=== PATIENT | male | born 1955 | race African-American/Black ===

== ENCOUNTER 2019-05-29 13:14 | Inpatient (IN) | payer OTHER ==
[2019-05-29 16:05] VITALS: BMI 29.9
--- NOTE | 2019-05-29 18:26 | HP ---
COWS - Scale Resting Pulse: 0= ND 80 or Below Sweatin= Chills/Flushing Restless Observation: 0= Sits Still Pupil Size: 0= Normal to Room Light Bone or Joint Aches: 2= Severe Diffuse Aches Runny Nose/ Eye Tearin= Runny Nose/Eyes GI Upset > 30mins: 2= Nausea/Diarrhea Tremor Observation: 2= Slight Tremor Visible Yawning Observation: 1= 1-2x During Session Anxiety or Irritability: 1=Feels Anxious/Irritable Goose Flesh Skin: 3=Piloerection COWS Score: 14 CIWA Score - Admission Criteria OASAS Guidelines: Admission for Medically Managed Detox: Requires at least one of the followin. CIWA greater than 12 2. Seizures within the past 24 hours 3. Delirium tremens within the past 24 hours 4. Hallucinations within the past 24 hours 5. Acute intervention needed for co occurring medical disorder 6. Acute intervention needed for co occurring psychiatric disorder 7. Severe withdrawal that cannot be handled at a lower level of care (continued vomiting, continued diarrhea, abnormal vital signs) requiring intravenous medication and/or fluids 8. Admission ROS [facility] Chief Complaint: I came here to be cleaned Allergies/Adverse Reactions: Allergies Allergy/AdvReac Type Severity Reaction Status Date / Time No Known Allergies Allergy Verified 05/29/19 16:06 History of Present Illness: Patient is a 63 year old man with heroin dependence who presents for detox. His last detox was at [facility] 4 years ago. Patient uses wheelchair due to knee and hip pain. Exam Limitations: No Limitations - Ebola screening Have you traveled outside of the country in the last 21 days: No (N) Have you had contact with anyone from an Ebola affected area: No Have you been sick,other than usual withdrawal symptoms: No Do you have a fever: No - Review of Systems Constitutional: Chills, Loss of Appetite, Changes in sleep EENT: reports: Recent change in vision, Nose Congestion Respiratory: reports: SOB with Exertion Cardiac: reports: Lightheadedness, Palpitations (sometimes) GI: reports: Nausea, Poor Appetite, Poor Fluid Intake, Abdominal cramping : reports: No Symptoms Reported Musculoskeletal: reports: Back Pain, Joint Pain, Muscle Pain, Muscle Weakness Integumentary: reports: Sweating Neuro: reports: Headache, Tremors Endocrine: reports: No Symptoms Reported Hematology: reports: No Symptoms Reported Psychiatric: reports: Depressed Other Systems: Reviewed and Negative Patient History - Patient Medical History Hx Anemia: No Hx Asthma: No Hx Chronic Obstructive Pulmonary Disease (COPD): No Hx Cancer: No Hx Cardiac Disorders: No Hx Congestive Heart Failure: No Hx Hypertension: Yes Hx Hypercholesterolemia: Yes Hx Pacemaker: No HX Cerebrovascular Accident: No Hx Seizures: No Hx Dementia: No Hx Diabetes: No Hx Gastrointestinal Disorders: No Hx Liver Disease: No Hx Genitourinary Disorders: No Hx Sexually Transmitted Disorders: No Hx Renal Disease (ESRD): No Hx Thyroid Disease: No Hx Human Immunodeficiency Virus (HIV): No Hx Hepatitis C: No Hx Depression: Yes Hx Suicide Attempt: No Hx Bipolar Disorder: No Hx Schizophrenia: No - Patient Surgical History Past Surgical History: Yes Hx Neurologic Surgery: No Hx Cataract Extraction: No Hx Cardiac Surgery: No Hx Lung Surgery: No Hx Breast Surgery: No Hx Breast Biopsy: No Hx Abdominal Surgery: No Hx Appendectomy: No Hx Cholecystectomy: No Hx Genitourinary Surgery: No Hx Section: No Hx Orthopedic Surgery: Yes (right ankle 45 years ago) Anesthesia Reaction: No - PPD History Previous Implant?: Yes Documented Results: Negative w/o proof Implanted On Prior R Admission?: No PPD to be Administered?: Yes - Smoking Cessation Smoking history: Current every day smoker Have you smoked in the past 12 months: Yes Aproximately how many cigarettes per day: 10 Hx Chewing Tobacco Use: No Initiated information on smoking cessation: Yes 'Breaking Loose' booklet given: 05/29/19 - Substances abused Heroin Other (specify): sniff Frequency: Daily Amount used: 3 to 4 bags Age of first use: 53 Date of last use: 05/29/19 Admission Physical Exam [facility] - Vital Signs Vital Signs: Vital Signs - 24 hr 05/29/19 05/29/19 16:00 17:54 Temperature 98.9 F 98.9 F Pulse Rate 79 79 Respiratory 18 18 Rate Blood Pressure 175/86 H 175/86 H - Physical General Appearance: Yes: No Apparent Distress HEENTM: Yes: Hearing grossly Normal, Normocephalic, Normal Voice Respiratory: Yes: Chest Non-Tender, Lungs Clear, Normal Breath Sounds, No Respiratory Distress, No Accessory Muscle Use Neck: Yes: No masses,lesions,Nodules, Supple Breast: Yes: Breast Exam Deferred Cardiology: Yes: Regular Rhythm, Regular Rate, S1, S2 Abdominal: Yes: Normal Bowel Sounds, Soft Genitourinary: Yes: Within Normal Limits Back: Yes: Normal Inspection Musculoskeletal: Yes: Back pain, Joint Stiffness, Muscle weakness, Other ( bilateral LE pitting edema 2+) Extremities: Yes: Tremors, Coldness Neurological: Yes: Fully Oriented, Alert, Normal Mood/Affect, Normal Response Integumentary: Yes: Clammy Lymphatic: Yes: Within Normal Limits - Diagnostic (1) Heroin dependence Current Visit: Yes Status: Acute (2) Nicotine dependence unspecified, with withdrawal Current Visit: Yes Status: Acute Qualifiers: Nicotine product type: cigarettes Qualified Code(s): F17.213 - Nicotine dependence, cigarettes, with withdrawal (3) Hypertension Current Visit: Yes Status: Chronic Qualifiers: Hypertension type: essential hypertension Qualified Code(s): I10 - Essential (primary) hypertension (4) Osteoarthritis of hips, bilateral Current Visit: Yes Status: Acute Qualifiers: Osteoarthritis type: primary Qualified Code(s): M16.0 - Bilateral primary osteoarthritis of hip (5) Osteoarthritis of knees, bilateral Current Visit: Yes Status: Acute Qualifiers: Osteoarthritis type: primary Qualified Code(s): M17.0 - Bilateral primary osteoarthritis of knee Cleared for Admission S - Detox or Rehab [facility] Level of Care: Medically Managed Detox Regimen/Protocol: Methadone Claeared for Rehab Admission: No Breathalyzer - Breathalyzer Breathalyzer: 0 Urine Drug Screen - Test Device Lot number: [id number] Expiration date: 02/10/21 - Control Is test valid?: Yes - Results Drug screen NEGATIVE: No Urine drug screen results: THC-Marijuana, ALAINA-Cocaine, FEN-Fentanyl, MOP-Opiates Inpatient Rehab Admission - Rehab Decision to Admit Inpatient rehab admission?: No
[2019-05-29] MEDS ORDERED: IBUPROFEN 400 MG TABLET (FP) PO PRN (18:29)
[2019-05-29] MEDS ORDERED: BISMUTH SUBSALICYLATE 524 MG/30 ML UD PO PRN (18:29)
[2019-05-29] MEDS ORDERED: NALOXONE HCL 0.4 MG/ML VIAL IM PRN (18:29)
[2019-05-29] MEDS ORDERED: MAGNESIUM CITRATE 300 ML BOTTLE PO PRN (18:29)
[2019-05-29] MEDS ORDERED: MAG HYDROX/AL HYDROX/SIMETH 30 ML UNIT-DOSE CUP PO PRN (18:29)
[2019-05-29] MEDS ORDERED: NICOTINE POLACRILEX 2 MG GUM BUC PRN (18:29)
[2019-05-29] MEDS ORDERED: MAGNESIUM HYDROX 2400MG/30ML ORAL SUSPENSION 30 ML CUP PO PRN (18:29)
[2019-05-29] MEDS ORDERED: MENTHOL/PHENOL 1 EACH UD MM PRN (18:29)
[2019-05-29] MEDS ORDERED: METHADONE HCL 10 MG TABLET (FOR DETOX USE ONLY) PO ONE (18:29)
[2019-05-29] MEDS ORDERED: ACETAMINOPHEN 325 MG TABLET (FP) PO PRN ×2 (18:29)
[2019-05-29] MEDS: NICOTINE 7 MG/24 HOURS TOPICAL PATCH TD SCH (20:22)
[2019-05-29] MEDS: THIAMINE HCL 100 MG TABLET (FP) PO SCH (22:57)
[2019-05-30] MEDS: MELATONIN 5 MG TABLETS PO PRN ×2 (00:42→22:25)
[2019-05-30] MEDS: cloNIDine HCL 0.1 MG TABLET PO PRN ×3 (01:39→23:17)
[2019-05-30] MEDS ORDERED: METHADONE HCL 5 MG TABLET (FOR DETOX USE ONLY) PO ONE (10:00)
[2019-05-30] MEDS: PRENATAL VITAMINS W/ FOLIC ACID TABLET (FP) PO SCH (10:28)
[2019-05-30] MEDS: amLODIPine BESYLATE 10 MG TABLET (FP) PO SCH (10:28)
[2019-05-30] MEDS: NICOTINE 7 MG/24 HOURS TOPICAL PATCH TD SCH (10:29)
[2019-05-30 10:59] LABS: HEMATOCRIT 37.2 % (35.4-49); HEMOGLOBIN 12.2 GM/dL (11.7-16.9); MCH 27.5 pg (25.7-33.7); MCHC 32.7 g/dl (32.0-35.9); MEAN PLT VOLUME 8.3 fl (7.5-11.1); PLATELET COUNT 248 K/MM3 (134-434); RBC 4.43 M/mm3 (4.00-5.60); RDW 14.9 % (11.9-15.9); WHITE BLOOD COUNT 7.4 K/mm3 (4.0-10.0)
[2019-05-30 11:09] LABS: ALBUMIN 3.6 g/dl (3.4-5.0); BILIRUBIN,TOTAL 0.4 mg/dL (0.2-1); BLOOD UREA NITROGEN 10.8 mg/dL (7-18); CALCIUM 9.3 mg/dL (8.5-10.1); CREATININE 1.1 mg/dL (0.55-1.3); TOT PROT 7.4 g/dl (6.4-8.2)
--- NOTE | 2019-05-30 12:34 | PN ---
[facility] COWS - Scale Resting Pulse: 0= SD 80 or Below Sweatin= Chills/Flushing Restless Observation: 3= Extraneous Movement Pupil Size: 0= Normal to Room Light Bone or Joint Aches: 1= Mild Discomfort Runny Nose/ Eye Tearin= None GI Upset > 30mins: 2= Nausea/Diarrhea Tremor Observation of Outstretched Hands: 2= Slight Tremor Visible Yawning Observation: 0= None Anxiety or Irritability: 2=Irritable/Anxious Goose Flesh Skin: 0=Smooth Skin COWS Score: 11 BHS Progress Note (SOAP) Subjective: Tremor, chills, sweating, interrupted sleep Objective: 05/30/19 12:31 Last Vital Signs Temp Pulse Resp BP Pulse Ox 98.1 F 69 18 187/73 H 05/30/19 10:47 05/30/19 10:47 05/30/19 10:47 05/30/19 10:47 Elevated b/p: has htn, on medication Laboratory Tests 05/30/19 05/30/19 05/30/19 07:40 07:40 07:40 WBC 7.4 RBC 4.43 Hgb 12.2 Hct 37.2 MCV 84.0 MCH 27.5 MCHC 32.7 RDW 14.9 Plt Count 248 MPV 8.3 Sodium 141 Potassium 4.0 Chloride 106 Carbon Dioxide 30 Anion Gap 5 L BUN 10.8 Creatinine 1.1 Est GFR (CKD-EPI)AfAm 81.22 Est GFR (CKD-EPI)NonAf 70.07 Random Glucose 100 Calcium 9.3 Total Bilirubin 0.4 AST 12 L ALT 12 L Alkaline Phosphatase 104 Total Protein 7.4 Albumin 3.6 RPR Titer Nonreactive HIV 1&2 Antibody Screen HIV P24 Antigen 05/30/19 07:40 WBC RBC Hgb Hct MCV MCH MCHC RDW Plt Count MPV Sodium Potassium Chloride Carbon Dioxide Anion Gap BUN Creatinine Est GFR (CKD-EPI)AfAm Est GFR (CKD-EPI)NonAf Random Glucose Calcium Total Bilirubin AST ALT Alkaline Phosphatase Total Protein Albumin RPR Titer HIV 1&2 Antibody Screen Negative HIV P24 Antigen Negative Labs reviewed Assessment: 05/30/19 12:33 Withdrawal sxs Plan: Continue detox Encouraged PO water intake HTN: continue norvasc, monitor b/p
[2019-05-30] MEDS: METHOCARBAMOL 500 MG TABLET PO PRN (18:19)
[2019-05-30] MEDS: hydrOXYzine PAMOATE 50 MG CAPSULE (FP) PO PRN (19:25)
[2019-05-30] MEDS: THIAMINE HCL 100 MG TABLET (FP) PO SCH (22:25)
[2019-05-31] MEDS: METHOCARBAMOL 500 MG TABLET PO PRN (01:34)
[2019-05-31] MEDS: hydrOXYzine PAMOATE 50 MG CAPSULE (FP) PO PRN (01:34)
--- NOTE | 2019-05-31 09:59 | PN ---
[facility] Progress Note Note: pt states he wants to leave and go home. Pt was encouraged to stay and complete his detox but he insisted on leaving. Pt chose to sign out AMA.
[2019-05-31] MEDS ORDERED: METHADONE HCL 10 MG TABLET (FOR DETOX USE ONLY) PO ONE (10:00)
--- NOTE | 2019-05-31 10:00 | DS ---
[facility] Detox Discharge Summary Admission Date: 05/29/19 - History Present History: Opioid Dependence - Physical Exam Results Vital Signs: Vital Signs Temperature 98.2 F 05/31/19 09:22 Pulse Rate 64 05/31/19 09:22 Respiratory Rate 16 05/31/19 09:22 Blood Pressure 144/84 05/31/19 09:22 O2 Sat by Pulse Oximetry (%) - Treatment Hospital Course: Rehab Referral Accepted - Medication Discharge Medications: Ambulatory Orders Amlodipine Besylate 10 mg PO DAILY 05/29/19 - Diagnosis (1) Heroin dependence Current Visit: Yes Status: Chronic (2) Nicotine dependence unspecified, with withdrawal Current Visit: Yes Status: Chronic Qualifiers: Nicotine product type: cigarettes Qualified Code(s): F17.213 - Nicotine dependence, cigarettes, with withdrawal (3) Osteoarthritis of hips, bilateral Current Visit: Yes Status: Acute Qualifiers: Osteoarthritis type: primary Qualified Code(s): M16.0 - Bilateral primary osteoarthritis of hip (4) Osteoarthritis of knees, bilateral Current Visit: Yes Status: Acute Qualifiers: Osteoarthritis type: primary Qualified Code(s): M17.0 - Bilateral primary osteoarthritis of knee (5) Hypertension Current Visit: Yes Status: Chronic Qualifiers: Hypertension type: essential hypertension Qualified Code(s): I10 - Essential (primary) hypertension - AMA Did Patient Leave Against Medical Advice: Yes
[2019-05-31] MEDS: PRENATAL VITAMINS W/ FOLIC ACID TABLET (FP) PO SCH (11:12)
[2019-05-31] MEDS: amLODIPine BESYLATE 10 MG TABLET (FP) PO SCH (11:12)
[2019-05-31] MEDS: NICOTINE 7 MG/24 HOURS TOPICAL PATCH TD SCH (11:13)
[2019-05-31 13:19] VITALS: BP 160/97; PULSE 70; TEMP 97.5
[2019-06-01] MEDS ORDERED: METHADONE HCL 5 MG TABLET (FOR DETOX USE ONLY) PO ONE (06:00)
== END 2019-05-31 13:00 | disposition left against medical advice (07) | DRG 894 ==
LOC: YASAS 13:14 → Y6N 18:41
PROVIDERS: ADMIT Allergy & Immunology; ATTEND Allergy & Immunology
PROC: HZ2ZZZZ Detoxification Services for Substance Abuse Treatment (ICD-10-PCS; principal; 2019-05-29)
DX: F11.23 Opioid dependence with withdrawal (principal); F17.213 Nicotine dependence, cigarettes, with withdrawal; I10 Essential (primary) hypertension; M16.0 Bilateral primary osteoarthritis of hip; M17.0 Bilateral primary osteoarthritis of knee
CPT/HCPCS: 36415; 80053; 85027; 86593; 87389; J0735